=== PATIENT | female | born 1980 | race Caucasian/White ===

== ENCOUNTER → 2017-11-22 | Outpatient (CLI) | payer BC ==
--- NOTE | 2017-11-22 12:41 | MM ---
Reason for exam: screening (asymptomatic). Baseline mammogram. History: Family history of breast cancer in maternal aunt at age 60. Took hormonal contraceptives for 12 years. Physical Findings: Nurse did not find any significant physical abnormalities on exam. MG 3D Screening Mammo W/Cad Bilateral CC, MLO, and XCCL view(s) were taken. The breast tissue is heterogeneously dense. This may lower the sensitivity of mammography. No suspicious calcifications are seen. Focal asymmetry posterior right MLO view. These results were verbally communicated with the patient and result sheet given to the patient on 11/22/17. ASSESSMENT: Incomplete: need additional imaging evaluation, BI-RAD 0 RECOMMENDATION: Special view mammogram of the right breast.
--- NOTE | 2017-11-22 12:43 | MM ---
Reason for exam: additional evaluation requested from abnormal screening. History: Family history of breast cancer in maternal aunt at age 60. Took hormonal contraceptives for 12 years. Physical Findings: Breast exam preformed at baseline screening. MG 3D Work Up W/Cad RT Spot compression CC, spot compression MLO, and ML view(s) were taken of the right breast. Nodular density far posterior right breast 11 cm from nipple. Ultrasound recommended. These results were verbally communicated with the patient and result sheet given to the patient on 11/22/17. ASSESSMENT: Incomplete: need additional imaging evaluation, BI-RAD 0 RECOMMENDATION: Ultrasound of the right breast.
--- NOTE | 2017-11-22 13:00 | USB ---
Reason for exam: additional evaluation requested from abnormal screening. History: Family history of breast cancer in maternal aunt at age 60. Took hormonal contraceptives for 12 years. US Breast Workup Limited RT Technologist: Shelli Mackay RT (R)(M) Right limited breast ultrasound including focal area of concern, retroareolar and axilla demonstrates a 8 x 4 x 5mm cystic cluster at 10 o'clock, 10.4cm from nipple. These results were verbally communicated with the patient and result sheet given to the patient on 11/22/16. ASSESSMENT: Benign, BI-RAD 2 RECOMMENDATION: Return to routine screening mammogram schedule for both breasts.
== END | disposition home or self-care (01) ==
LOC: RADMAMWWP 09:28
PROVIDERS: ATTEND Obstetrics & Gynecology
DX: Z12.31 Encounter for screening mammogram for malignant neoplasm of breast (principal); R92.8 Other abnormal and inconclusive findings on diagnostic imaging of breast
CPT/HCPCS: 77061; 77063; 77065; 77067

== ENCOUNTER 2018-01-03 06:05 | Day surgery (SDC) | payer BC ==
[2017-12-27 12:24] VITALS: BMI 29.0
--- NOTE | 2018-01-02 07:24 | P.HPOB ---
History of Present Illness H&P Date: 01/02/18 Chief Complaint: Menorrhagia. This patient is a pleasant 37 yr female who is presenting for endometrial ablation secondary to persistent menorrhagia. She had heavy menses with an IUD in place. Her partner got a vasectomy and IUD was removed, but her menses are still lasting about 9-10 days, very heavy needing to change a tampon every hour. Ultrasound was normal. She is a fairly heavy smoker and therefore not a hormone candidate so she would like an endometrial ablation. Review of Systems Constitutional: Reports as per HPI Genitourinary: Reports menorrhagia Menstruation: Reports as per HPI, Reports period heavy Past Medical History Past Medical History: Osteoarthritis (OA) Additional Past Medical History / Comment(s): Migraine headaches. History of Any Multi-Drug Resistant Organisms: None Reported Past Surgical History: Tonsillectomy Additional Past Surgical History / Comment(s): CURTIS KNEES TWICE, DEVIATED SEPTUM Past Anesthesia/Blood Transfusion Reactions: No Reported Reaction Past Psychological History: No Psychological Hx Reported Smoking Status: Current every day smoker Past Alcohol Use History: Occasional Additional Past Alcohol Use History / Comment(s): Has been smoking 1/2 PPD for 20 yrs. Past Drug Use History: None Reported - Past Family History Father Family Medical History: Cancer Additional Family Medical History / Comment(s): Postate cancer. Medications and Allergies Home Medications Medication Instructions Recorded Confirmed Type Cetirizine HCl [Zyrtec] 10 mg PO DAILY 12/27/17 12/27/17 History Fluticasone Nasal Gobles [Flonase 1 spray EA NOSTRIL DAILY 12/27/17 12/27/17 History Nasal Gobles] Allergies Allergy/AdvReac Type Severity Reaction Status Date / Time No Known Allergies Allergy Verified 12/27/17 12:14 Exam - OBG Physical Exam Abdomen: bowel sounds normal, no diffuse tenderness, no bruit present, no guarding noted, no hepatomegaly, no splenomegaly, no mass Vulva: both: normal Vagina: normal moisture, no discharge Cervix: no lesion, no discharge Uterus: normal size, normal contour Results Pelvic ultrasound was normal. Assessment and Plan Assessment: This is a pleasant 37 yr female with longstanding menorrhagia who is requesting endometrial ablation. I have discussed this surgery and risks: infection, bleeding, possible uterine perforation and/or thermal injury. All of the patients questions were answered and a written consent obtained. Plan is hysteroscopy, D&C, and Novasure endometrial ablation. (1) Menorrhagia Status: Chronic Code(s): N92.0 - EXCESSIVE AND FREQUENT MENSTRUATION WITH REGULAR CYCLE SNOMED Code(s): 388241781
[~2018-01-03 06:05] MED LIST: Pre Op ABX Message 1 EACH MISC MISCELLANE ONE
[2018-01-03] MEDS ORDERED: LACTATED RINGERS 1,000 ML IV SCH (06:15)
[2018-01-03] MEDS ORDERED: MIDAZOLAM 2 MG/2 ML VIAL IV PRN (06:15)
[2018-01-03] MEDS ORDERED: ONDANSETRON 4 MG/2 ML VIAL IVP ONE (06:15)
[2018-01-03] MEDS ORDERED: SCOPOLAMINE 1.5MG/72HR PATCH TRANSDERM ONE (06:15)
[2018-01-03] MEDS ORDERED: DEXAMETHASONE SOD PHOSPHATE 10 MG/ML 1 ML VIAL IV ONE (06:15)
[2018-01-03 06:57] VITALS: RESP 16
[2018-01-03] MEDS ORDERED: SUCCINYLCHOLINE CHLORIDE 100 MG/5 ML SYR IV ONE (07:22)
[2018-01-03] MEDS ORDERED: PROPOFOL 10 MG/ML 20 ML VIAL IV ONE (07:22)
[2018-01-03] MEDS ORDERED: fentaNYL (PF) 50 MCG/ML 2 ML AMP ONE (07:22)
[2018-01-03] MEDS ORDERED: MIDAZOLAM 2 MG/2 ML VIAL ONE (07:22)
[2018-01-03] MEDS ORDERED: LIDOCAINE 1% INJ 10MG/ML (20 ML MDV) ONE (07:22)
--- NOTE | 2018-01-03 07:57 | P.OP ---
Date of Procedure: 01/03/18 Preoperative Diagnosis: Menorrhagia Postoperative Diagnosis: Same Procedure(s) Performed: #1: Hysteroscopy. #2: Dilation and curettage. #3: NovaSure endometrial ablation Anesthesia: MANDY Surgeon: Femi Montoya Estimated Blood Loss (ml): 5 Urine output (ml): 25 Pathology: other (Uterine curettings) Condition: stable Disposition: PACU Indications for Procedure: Please see dictated H&P for intimate details of this patient's admission. Brief summary this pleasant 37-year-old female with long-standing menorrhagia who presents for endometrial ablation for treatment. Patient and I have discussed the surgery and risks including risks of infection, bleeding, possible uterine perforation, and/or thermal injury. All the patient's questions are answered written consent is obtained. Operative Findings: This patient had normal-appearing endometrial cavity Description of Procedure: This patient is taken to the operating room where she is laid in the supine position. She subsequent undergoes general endotracheal anesthesia without incident. With adequate level of anesthesia she's placed in the dorsal lithotomy position. She has a vaginal perineal prep and drape. Examination under anesthesia shows a uterus to be mid position. Weighted speculum placed in the posterior vagina. The anterior lip of the cervix is grabbed with an Allis clamp. The bladder is drained for 25 mL of clear urine. The cervix and uterus is then sounded to 8 cm. Gentle dilation is then done to allow the hysteroscope easily into the uterine cavity. Hysteroscopy is performed with saline solution the uterine cavity appears normal without evidence of polyps or fibroids. Hysteroscope was then removed and the cervix is dilated more to allow a small curette easily uterine cavity a gentle but thorough 4 quadrant curettage is done at this time. This completed I then dilate cervix slightly more to allow the NovaSure device into the uterine cavity. It is set at a length of 5.5 cm and opens up to a width of 4.7 cm. It is then seated in place and passes the cavity integrity test. Then enabled at 142 W setting for 77 seconds. With this done the NovaSure device is removed and appears to be intact. Hysteroscopy is then performed again and the uterine cavity appears to be completely ablated up to the endocervix. This completed the procedure is ended. The Allis clamp and weighted speculum removed. All counts are correct 3. There are no complications. Patient is taken to the recovery room in satisfactory condition.
[2018-01-03] MEDS ORDERED: LACTATED RINGERS 1,000 ML IV ONE ×2 (08:00)
[2018-01-03 08:09] VITALS: TEMP 96.8
[2018-01-03] MEDS ORDERED: KETOROLAC 30 MG/ML 1 ML VIAL IVP ONE (08:21)
[2018-01-03] MEDS: HYDROmorphone 0.5 MG/0.5 ML SYRINGE IVP PRN ×2 (08:26→08:31)
[2018-01-03 09:20] VITALS: BP 104/69; PULSE 55
== END 2018-01-03 09:34 | disposition home or self-care (01) ==
LOC: OR 06:05
PROVIDERS: ATTEND Obstetrics & Gynecology
DX: N92.0 Excessive and frequent menstruation with regular cycle (principal); F17.210 Nicotine dependence, cigarettes, uncomplicated; M19.90 Unspecified osteoarthritis, unspecified site; Z79.1 Long term (current) use of non-steroidal anti-inflammatories (NSAID); Z79.899 Other long term (current) drug therapy
CPT/HCPCS: 58563; 81025; 88305; J2250; J2001; J3010; J1885; J0330; J2704; J1170

== ENCOUNTER → 2018-11-08 | Outpatient (CLI) | payer BC ==
--- NOTE | 2018-11-08 08:32 | US ---
EXAMINATION TYPE: US abdomen complete DATE OF EXAM: 11/08/2018 COMPARISON: NONE CLINICAL HISTORY: R10.13 Epigastric Pain. epigastric and RUQ pain for 3 weeks EXAM MEASUREMENTS: Liver Length: 17.7 cm Gallbladder Wall: 0.3 cm CBD: 0.3 cm Spleen: 10.3 cm Right Kidney: 11.6 x 3.5 x 4.8 cm Left Kidney: 10.6 x 5.1 x 4.7 cm Pancreas: Obscured by bowel gas Liver: wnl Gallbladder: no evidence of stones Evidence for sonographic Hampton's sign: no CBD: wnl Spleen: wnl Right Kidney: no evidence of hydronephrosis Left Kidney: Hyperechoic foci x 2 measure 4 mm. Upper IVC: wnl Abd Aorta: visualized portions appear wnl The liver is homogenous. The intrahepatic portion of the IVC and proximal abdominal aorta are within normal limits. There is no evidence of cholelithiasis. Common bile duct is unremarkable. The panc reas is obscured. The spleen is unremarkable. Kidneys are symmetric and free of hydronephrosis. No renal lesions are seen. IMPRESSION: 1. No sonographic evidence of hydronephrosis or acute cholecystitis. 2. Probable punctate nonobstructing left renal calculi. 3. Obscuration of the pancreas by overlying bowel gas.
== END | disposition home or self-care (01) ==
LOC: RADUSWWP 06:55
PROVIDERS: ATTEND Family Medicine
DX: R10.13 Epigastric pain (principal)
CPT/HCPCS: 76700

== ENCOUNTER 2018-11-11 09:28 | Emergency (ER) | payer BC ==
[2018-11-11 09:49] VITALS: TEMP 98.4
[2018-11-11] MEDS ORDERED: KETOROLAC 30 MG/ML 1 ML VIAL IVP STA (10:11)
--- NOTE | 2018-11-11 10:25 | ED ---
General Adult HPI - General Chief complaint: Chest Pain Stated complaint: epigastric pain Time Seen by Provider: 11/11/18 10:02 Source: patient Mode of arrival: ambulatory Limitations: no limitations - History of Present Illness Initial comments: Patient is a 38-year-old female presents emergency Department with a chief complaint pain in the stomach. Patient reports mild epigastric pain for approximately 3 weeks that have been coming and going. Patient reports initially the pain was also referred to right shoulder but has since resolved. Patient reports she went to urgent care twice and they give her a prescription for an epigastric ultrasound. Patient reports she obtained a ultrasound yesterday and at the natural resources technician pressed in the epigastric region pain has increased in severity. Patient reports the pain in the right shoulder has returned. Patient reports intermittent mild nausea but no vomiting or diarrhea. Patient reports the pain is exacerbated when laying supine and alleviated in standing position. Patient reports that she can feel "something sliding" in the epigastric region after which she gets some relief. Patient denies chest pain, chest tightness or shortness of breath. Patient denies fever, night sweats or chills. Patient reports the pain is not related to food intake. Patient denies hematuria, hematochezia or melena. - Related Data Home Medications Medication Instructions Recorded Confirmed Baclofen [Lioresal] 10 mg PO HS 11/11/18 11/11/18 Ibuprofen [Motrin] 800 mg PO Q6H PRN 11/11/18 11/11/18 Multivitamins, Thera [Multivitamin 1 tab PO DAILY 11/11/18 11/11/18 (formulary)] Previous Rx's Medication Instructions Recorded Ondansetron Odt [Zofran Odt] 4 mg PO Q8HR PRN #10 tab 11/11/18 Allergies Allergy/AdvReac Type Severity Reaction Status Date / Time No Known Allergies Allergy Verified 11/11/18 10:20 Review of Systems ROS Statement: Those systems with pertinent positive or pertinent negative responses have been documented in the HPI. ROS Other: All systems not noted in ROS Statement are negative. Past Medical History Past Medical History: Osteoarthritis (OA) Additional Past Medical History / Comment(s): Migraine headaches. History of Any Multi-Drug Resistant Organisms: None Reported Past Surgical History: Tonsillectomy Additional Past Surgical History / Comment(s): CURTIS KNEES TWICE, DEVIATED SEPTUM uterine ablation Past Anesthesia/Blood Transfusion Reactions: No Reported Reaction Past Psychological History: No Psychological Hx Reported Smoking Status: Current every day smoker Past Alcohol Use History: Occasional Past Drug Use History: None Reported - Past Family History Father Family Medical History: Cancer Additional Family Medical History / Comment(s): Postate cancer. General Exam Limitations: no limitations General appearance: alert, in no apparent distress Head exam: Present: atraumatic, normocephalic, normal inspection Eye exam: Present: normal appearance, PERRL, EOMI Pupils: Present: normal accommodation ENT exam: Present: normal exam, mucous membranes moist, normal external ear exam Neck exam: Present: normal inspection, full ROM Respiratory exam: Present: normal lung sounds bilaterally Cardiovascular Exam: Present: regular rate, normal rhythm, normal heart sounds GI/Abdominal exam: Present: soft, tenderness (Epigastric and umbilical with palpation), normal bowel sounds, other (Negative Hampton sign, negative Rovsing, negative McBurney point tenderness, negative obturator, negative psoas). Absent: distended, guarding, rebound, rigid, mass, pulsatile mass Extremities exam: Present: normal inspection, full ROM Back exam: Present: normal inspection, full ROM, tenderness (Mild Right thoracic paraspinal tenderness). 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 Ventricular rate 75. QRS duration 88. WI interval 124. QT/QTc is 72/415. P-R-T axes 60 62 48 Medical Decision Making - Medical Decision Making Patient is a 38-year-old male presenting to emergency Department with a chief complaint of abdominal pain. KUB is indicative of possible enteritis or ileus. Chest x-ray is unremarkable. Based on history, physical examination suspect the patient to have a mild sliding hiatal hernia. Patient reports the pain is alleviated whenever she standing up and feels that "something is sliding down". Patient advised to follow with primary care for further management. Strict return parameters were thoroughly discussed with patient was or standing and agreeable. Case discussed physician. - Lab Data Lab Results 11/11/18 11/11/18 Range/Units 10:33 10:33 Urine Color Light Yellow Urine Appearance Clear (Clear) Urine pH 7.0 (5.0-8.0) Ur Specific [place] 1.004 (1.001-1.035) Urine Protein Negative (Negative) Urine Glucose (UA) Negative (Negative) Urine Ketones Negative (Negative) Urine Blood Negative (Negative) Urine Nitrite Negative (Negative) Urine Bilirubin Negative (Negative) Urine Urobilinogen <2.0 (<2.0) mg/dL Ur Leukocyte Esterase Negative (Negative) Urine HCG, Qual Not Detected (Not Detectd) Disposition Clinical Impression: Epigastric abdominal pain Disposition: HOME SELF-CARE Condition: Stable Instructions (If sedation given, give patient instructions): Abdominal Pain (ED) Additional Instructions: Please follow up with a GI specialist. Position emergency department if symptoms worsen. Alternate between Tylenol and ibuprofen for pain control. Prescriptions: Ondansetron Odt [Zofran Odt] 4 mg PO Q8HR PRN #10 tab PRN Reason: Nausea Is patient prescribed a controlled substance at d/c from ED?: No Referrals: Franc Wiley DO [Primary Care Provider] - 1-2 days Frances Castellanos MD [STAFF PHYSICIAN] - 1-2 days Time of Disposition: 11:58
--- NOTE | 2018-11-11 10:39 | XR ---
EXAMINATION TYPE: XR chest 2V DATE OF EXAM: 11/11/2018 COMPARISON: Prior chest x-ray 05/20/2011 HISTORY: Cough and pain TECHNIQUE: Frontal and lateral views of the chest are obtained. FINDINGS: There are overlying cardiac leads. There is no focal air space opacity, pleural effusion, or pneumothorax seen. The cardiac silhouette size is within normal limits. The osseous structures are intact. IMPRESSION: No acute cardiopulmonary process.
[2018-11-11 10:54] LABS: Appearance,Urine Clear (Clear); Bilirubin,Urine Negative (Negative); Blood,Urine Negative (Negative); Color,Urine Light Yellow; Glucose,Urine (UA) Negative (Negative); Ketones,Urine Negative (Negative); Leukocyte Esterase,Urine Negative (Negative); Nitrite,Urine Negative (Negative); Protein,Urine Negative (Negative); Specific Gravity,Urine 1.004 (1.001-1.035); Urobilinogen,Urine <2.0 mg/dL (<2.0)
--- NOTE | 2018-11-11 11:29 | XR ---
KUB HISTORY: Epigastric pain Frontal KUB and 2 images No comparisons There are overlying cardiac leads. There are air-fluid levels without bowel distention. No pneumoperi toneum. Lung bases are clear. Bone mineralization is normal. IMPRESSION: Correlate for enteritis, ileus, follow-up as indicated.
[2018-11-11 12:07] VITALS: BP 118/82; PULSE 71; RESP 16
== END 2018-11-11 12:10 | disposition home or self-care (01) ==
LOC: EC 09:28
DX: R10.13 Epigastric pain (principal); R07.9 Chest pain, unspecified; M25.511 Pain in right shoulder; R11.0 Nausea; F17.200 Nicotine dependence, unspecified, uncomplicated; Z87.39 Personal history of other diseases of the musculoskeletal system and connective tissue; Z79.899 Other long term (current) drug therapy
CPT/HCPCS: 93005; 81003; 81025; 71046; 74018; 99285; 96374; J1885

== ENCOUNTER → 2019-06-04 | Outpatient (CLI) | payer BC ==
--- NOTE | 2019-06-05 07:29 | US ---
EXAMINATION TYPE: US thyroid st tissue head/neck DATE OF EXAM: 06/04/2019 COMPARISON: 04/24/2014 CLINICAL HISTORY: E06.9 Thyroiditis, unspecified. thyromegaly, thyroiditis GLAND SIZE: Right Lobe: 4.9 x 1.6 x 1.9 cm Overall Parenchyma: homogenous Left Lobe: 5.0 x 1.4 x1.7 cm Overall Parenchyma: homogeneous Isthmus Thickness: 0.4 cm NODULES RIGHT: # of nodules measured on right: 0 LEFT: # of nodules measured on left: 0 ISTHMUS: # of nodules measured in the isthmus: 0 Bilateral neck scanned, no evidence of lymphadenopathy. IMPRESSION: Borderline thyromegaly. No discrete nodule.
== END | disposition home or self-care (01) ==
LOC: RADUSWWP 16:16
PROVIDERS: ATTEND Family Medicine
DX: E06.9 Thyroiditis, unspecified (principal)
CPT/HCPCS: 76536

== ENCOUNTER → 2021-09-21 | Outpatient (CLI) | payer BC ==
[~2021-09-21] MED LIST changes: +BEBTELOVIMAB (EUA) 175 MG/2 ML VIAL IV NR; -Pre Op ABX Message 1 EACH MISC MISCELLANE ONE; +SODIUM CHLORIDE 0.9% 500 ML 500 ML in EMPTY BAG 1 BAG IV PRN
[2021-09-21 12:43] VITALS: RESP 16; TEMP 98
[2021-09-21 13:59] VITALS: BP 128/72; PULSE 77
== END ==
LOC: PROCWHC3 11:59
PROVIDERS: ATTEND Nurse Practitioner Adult Health
DX: U07.1 COVID-19 (principal); E66.9 Obesity, unspecified; Z68.29 Body mass index [BMI] 29.0-29.9, adult; F17.200 Nicotine dependence, unspecified, uncomplicated
CPT/HCPCS: Q0222; M0222

== ENCOUNTER → 2022-07-06 | Outpatient (CLI) | payer BC ==
--- NOTE | 2022-07-07 08:14 | MM ---
Reason for Exam: Screening (asymptomatic). Last mammogram was performed 4 year(s) and 8 month(s) ago. Patient History: Menarche at age 11. First Full-Term at age 26. Patient used Hormonal Contraceptives for 12 years. Maternal aunt had breast cancer, age 60. Risk Values: Shanti 5 year model risk: 0.8%. NCI Lifetime model risk: 11.9%. Prior Study Comparison: 11/22/2017 Bilateral Screening Mammogram, [facility]. 11/22/2017 Right Diagnostic Mammogram, [facility]. Tissue Density: The breast tissue is heterogeneously dense. This may lower the sensitivity of mammography. Findings: Analyzed By CAD. There is no suspicious group of microcalcifications or new suspicious mass in either breast.No finding to correlate with patient's pain. There is no suspicious group of microcalcifications or new suspicious mass in either breast. Overall Assessment: Negative, BI-RAD 1 Management: Screening Mammogram of both breasts in 1 year. A clinical breast exam by your physician is recommended on an annual basis and results should be correlated with mammographic findings. [facility] will attempt to contact patient to return for supplemental views and ultrasound if indicated. Electronically signed and approved by: Eitan Mariee DO
== END | disposition home or self-care (01) ==
LOC: RADMAMWWP 14:28
PROVIDERS: ATTEND Family Medicine
DX: Z12.31 Encounter for screening mammogram for malignant neoplasm of breast (principal); Z80.3 Family history of malignant neoplasm of breast
CPT/HCPCS: 77063; 77067

== ENCOUNTER → 2023-04-06 | Outpatient (CLI) | payer BC ==
--- NOTE | 2023-04-06 14:17 | CT ---
EXAMINATION TYPE: CT abdomen pelvis wo con DATE OF EXAM: 04/06/2023 COMPARISON: 06/19/2012 HISTORY: LLQ pain, r/o diverticulitis stat hold and call CT DLP: 638.60 mGycm Automated exposure control for dose reduction was used. TECHNIQUE: Helical acquisition of images was performed from the lung bases through the pelvis. FINDINGS: The lungs are clear. Gallbladder is normal and there is no gallstone, wall thickening, pericholecystic fluid or distention . There is no biliary ductal dilatation. There is no organomegaly of the liver, pancreas, spleen or adrenal glands. There are no renal calcifications or hydronephrosis. The caliber of the abdominal aorta is normal and there is no retroperitoneal adenopathy or hemorrhage . The bowel loops are normal in caliber is no evidence of obstruction. No inflammatory changes are iden tified in the mesentery and there is no free intraperitoneal air or fluid. There is no pelvic mass, free fluid, abscess or adenopathy. The osseous structures and soft tissues are unremarkable. IMPRESSION: No significant abnormality seen.
== END | disposition home or self-care (01) ==
LOC: RADCTMAIN 13:41
PROVIDERS: ATTEND Family Medicine
DX: R10.32 Left lower quadrant pain (principal)
CPT/HCPCS: 74176

== ENCOUNTER → 2023-08-17 | Outpatient (CLI) | payer BC ==
--- NOTE | 2023-08-20 12:25 | MM ---
Reason for Exam: Screening (asymptomatic). Last mammogram was performed 1 year(s) and 1 month(s) ago. Patient History: Menarche at age 11. First Full-Term at age 26. Patient used Hormonal Contraceptives for 12 years. Maternal aunt had breast cancer, age 60. Last menstrual period: 08/15/2023 Risk Values: Shanti 5 year model risk: 0.9%. NCI Lifetime model risk: 11.8%. Prior Study Comparison: 11/22/2017 Bilateral Screening Mammogram, [facility]. 11/22/2017 Right Diagnostic Mammogram, [facility]. 07/06/2022 Bilateral MG 3D screening mammo w/cad, [facility]. Tissue Density: The breasts are heterogeneously dense, which may obscure small masses. Findings: Analyzed By CAD. Pattern appears stable. No significant interval change is evident. A few scattered benign punctate calcifications are present. There are some calcifications within the posterior left breast 10 cm from the nipple 6:00 position. These are not clearly identified mediolateral oblique view. Additional workup with magnification views is recommended. Right breast:No suspicious groups of microcalcifications, spiculated or lobular masses, architectural distortion or other secondary signs of malignancy are mammographically apparent. Overall Assessment: Incomplete: need additional imaging evaluation, BI-RAD 0 Management: Diagnostic Mammogram of the left breast. A negative mammogram report should not preclude additional follow up of suspicious palpable abnormalities. Patient should continue monthly self breast exam. A clinical breast exam by your physician is recommended on an annual basis and results should be correlated with mammographic findings. Note on Shanti scores and lifetime risk: 1. A Shanti score greater than 3% is considered moderate risk. If this is the case, consider specialist referral to assess eligibility for a risk reducing agent. 2. If overall lifetime risk for the development of breast cancer is 20% or higher, the patient may qualify for future screening with alternating mammogram and breast MRI. Electronically signed and approved by: Franc Spence D.O. Radiologis
== END | disposition home or self-care (01) ==
LOC: RADMAMWWP 11:11
PROVIDERS: ATTEND Family Medicine
DX: Z12.31 Encounter for screening mammogram for malignant neoplasm of breast (principal); Z80.3 Family history of malignant neoplasm of breast
CPT/HCPCS: 77063; 77067

== ENCOUNTER → 2023-08-22 | Outpatient (CLI) | payer BC ==
--- NOTE | 2023-08-22 10:14 | MM ---
Reason for Exam: Additional evaluation requested from abnormal screening. Last screening mammogram was performed less than 1 month ago. Patient History: Menarche at age 11. First Full-Term at age 26. Patient has history of breast feeding. Patient used Hormonal Contraceptives for 12 years. Maternal aunt had breast cancer, age 60. Last menstrual period: 08/15/2023 Risk Values: Shanti 5 year model risk: 0.9%. NCI Lifetime model risk: 11.8%. Prior Study Comparison: 11/22/2017 Bilateral Screening Mammogram, [facility]. 11/22/2017 Right Diagnostic Mammogram, [facility]. 07/06/2022 Bilateral MG 3D screening mammo w/cad, [facility]. 08/17/2023 Bilateral MG 3D screening mammo w/cad, [facility]. Tissue Density: Left: The breasts are heterogeneously dense, which may obscure small masses. Analyzed By CAD. Overall Assessment: Suspicious, BI-RAD 4 Management: Stereotactic Core Biopsy of the left breast. Electronically signed and approved by: Franc Spence D.O. Radiologis
== END | disposition home or self-care (01) ==
LOC: RADMAMWWP 08:29
PROVIDERS: ATTEND Family Medicine
DX: R92.332 Mammographic heterogeneous density, left breast (principal); Z80.3 Family history of malignant neoplasm of breast
CPT/HCPCS: 77061; 77065

== ENCOUNTER → 2023-08-27 | Day surgery (SDC) | payer BC ==
[~2023-08-27] MED LIST changes: +ALPRAZolam 0.25 MG TAB PO PRN; -BEBTELOVIMAB (EUA) 175 MG/2 ML VIAL IV NR; -SODIUM CHLORIDE 0.9% 500 ML 500 ML in EMPTY BAG 1 BAG IV PRN
[2023-08-27] MEDS: ALPRAZolam 0.5 MG TAB PO PRN (10:10)
[2023-08-27 13:25] VITALS: BP 100/66; PULSE 108; RESP 16; TEMP 97.9
--- NOTE | 2023-08-30 08:14 | MM ---
Risk Values: Shanti 5 year model risk: 0.9%. NCI Lifetime model risk: 11.8%. Prior Study Comparison: 07/06/2022 Bilateral MG 3D screening mammo w/cad, [facility]. 08/17/2023 Bilateral MG 3D screening mammo w/cad, [facility]. 08/22/2023 Left MG 3D work up w/cad , [facility]. Pathology Description: Location: upper inner quadrant. Approach: CC FA Cores: 4 Skin Nicks: 1 Gauge: 9 The procedure of stereotactic guided core biopsy was explained to the patient. Benefits, alternatives, and risks were discussed. An informed consent was then obtained. The posterior upper inner quadrant calcifications are identified and targeted for biopsy. The shortness pathway for biopsy was chosen. Shortness pathway was a superior approach. I performed the localization, followed by the remainder of the procedure. A vacuum assisted biopsy gun was used to obtain 4 core samples. The patient tolerated the procedure well without any immediate complication. The patient was kept in the radiology department for short stay after the procedure and then discharged home in stable condition. Targeted calcifications are identified in specimen mammogram. Post biopsy mammogram shows the clip to appear in satisfactory position relative to the targeted area of concern on the preprocedure images. Impression: SUCCESSFUL, UNCOMPLICATED STEREOTACTIC GUIDED CORE BIOPSY OF POSTERIOR UPPER INNER QUADRANT LEFT BREAST MICROCALCIFICATIONS. Pathology Results: Result: High risk, Flat epithelial atypia. Pathology and radiology were reviewed. Findings are concordant. LEFT BREAST, STEREOTACTIC CORE BIOPSY: Focal flat epithelial atypia (FEA) with microcalcification. Background fibrocystic change with columnar cell change present. Overall Assessment: High risk Management: Surgical Consultation of the left breast. Electronically signed and approved by: Davida May M.D. Radiologist
== END ==
LOC: RADMAMWWP 07:24
PROVIDERS: ATTEND Family Medicine
DX: N64.89 Other specified disorders of breast (principal); R92.8 Other abnormal and inconclusive findings on diagnostic imaging of breast
CPT/HCPCS: 88305; 19081; A4648; J2001

== ENCOUNTER → 2024-01-28 | Outpatient (CLI) | payer BC ==
--- NOTE | 2024-01-28 07:49 | MM ---
Reason for Exam: Follow-up at short interval from prior study. Last screening mammogram was performed 6 month(s) ago. Patient History: Menarche at age 11. First Full-Term at age 26. Patient has history of breast feeding. Patient used Hormonal Contraceptives for 12 years. 08/27/2023, High risk MG stereo VAD BX LT on the left side. Maternal aunt had breast cancer, age 60. Risk Values: Shanti 5 year model risk: 1.4%. NCI Lifetime model risk: 14.2%. Prior Study Comparison: 07/06/2022 Bilateral MG 3D screening mammo w/cad, [facility]. 08/17/2023 Bilateral MG 3D screening mammo w/cad, [facility]. 08/22/2023 Left MG 3D work up w/cad LT, [facility]. Tissue Density: Left: The breasts are heterogeneously dense, which may obscure small masses. Findings: Analyzed By CAD. Pattern appears stable from comparison. Core marker is within the 12:00 middle to posterior position left breast. There are scattered punctate calcifications through the left breast. Focal asymmetry is upper outer left breast. No suspicious groups of microcalcifications, spiculated or lobular masses, architectural distortion or other secondary signs of malignancy are mammographically apparent. Overall Assessment: Probably benign, BI-RAD 3 Management: Screening Mammogram of both breasts in 6 months. Diagnostic Breast MRI of both breasts. A negative mammogram report should not preclude additional follow up of suspicious palpable abnormalities. Patient should continue monthly self breast exam. A clinical breast exam by your physician is recommended on an annual basis and results should be correlated with mammographic findings. Note on Shanti scores and lifetime risk: 1. A Shanti score greater than 3% is considered moderate risk. If this is the case, consider specialist referral to assess eligibility for a risk reducing agent. 2. If overall lifetime risk for the development of breast cancer is 20% or higher, the patient may qualify for future screening with alternating mammogram and breast MRI. [facility], , 01/28/2024 7:21 AM. Electronically signed and approved by: Franc Spence D.O. Radiologis
--- NOTE | 2024-01-29 18:48 | BMR ---
EXAM DATE: 01/28/2024 EXAM DESCRIPTION: MRI-Breast Bilat (W/WO Contrast) INDICATION: Left breast focal asymmetry without sonographic correlate. Family history of breast cancer in aunt. Previous left breast biopsy COMPARISON: PRIOR MRIs: None available. Correlation to mammograms: 01/28/2024, 08/27/2023. Correlation to ultrasound: None available. CONTRAST: 8 cc Gadavist IV gadolinium contrast TECHNIQUE: Multiplanar multisequence MR imaging of both breasts was performed with a dedicated breast coil. Images were obtained before and after administration of IV gadolinium, using the standard breast mass protocol. Computer aided detection was utilized for interpretation. FINDINGS: LMP: Not provided General breast composition: There are scattered areas of fibroglandular tissue Background parenchymal enhancement: Moderate RIGHT BREAST: The T2 weighted series shows no areas of abnormal signal intensity. Review of the dynamic series shows no early or abnormal enhancement. LEFT BREAST: The T2 weighted series shows no areas of abnormal signal intensity. Review of the dynamic series shows no early or abnormal enhancement. LYMPH NODES: There is no evidence of internal mammary or axillary adenopathy. IMPRESSION: RIGHT BREAST: No MR evidence of malignancy. LEFT BREAST: No MR evidence of malignancy. OVERALL ASSESSMENT -- BI- RADS 1: Negative ANNUAL SCREENING BREAST MRI IN ADDITION TO MAMMOGRAPHY IS RECOMMENDED IN PATIENTS WITH LIFETIME RISK OF BREAST CANCER >20% MTDD
== END | disposition home or self-care (01) ==
LOC: RADMAMWWP 06:52
PROVIDERS: ATTEND Surgery
DX: R92.2 Inconclusive mammogram (principal); Z80.3 Family history of malignant neoplasm of breast; R92.332 Mammographic heterogeneous density, left breast; Z91.89 Other specified personal risk factors, not elsewhere classified
CPT/HCPCS: 77065; 77061; 77049; A9585